=== PATIENT | male | born 1995 | race Caucasian/White ===

== ENCOUNTER 2023-01-25 20:21 | Emergency (ER) | payer BC ==
[2023-01-25] VITALS (8 sets, daily range): BP systolic 100–128; BP diastolic 68–83
[~2023-01-25] VITALS: Ht 177.8 cm; Wt 84.0 kg
== END 2023-01-25 21:58 | DRG 563 ==
LOC: ED 20:21
PROC: 2W3BX1Z Immobilization of Left Upper Arm using Splint (ICD-10-PCS; principal; 2023-01-25)
DX: S42.302A Unspecified fracture of shaft of humerus, left arm, initial encounter for closed fracture (principal); S41.102A Unspecified open wound of left upper arm, initial encounter; V86.99XA Unspecified occupant of other special all-terrain or other off-road motor vehicle injured in nontraffic accident, initial encounter
CPT/HCPCS: J0690